=== PATIENT | male | born 1950 | race Caucasian/White ===

== ENCOUNTER → 2023-09-16 20:45 | Day surgery (SDC) | payer OTHER, SELFPAY ==
[2023-09-16] VITALS (7 sets, daily range): BP systolic 123–168; BP diastolic 77–85; BMI 30.5
--- NOTE | 2023-09-16 19:06 | ED.GENMED ---
History of Present Illness
General
Chief Complaint: Swallowing Problem
Source: patient and spouse
Exam Limitations: none
Time Seen by Provider: 09/16/23 18:56
Nursing documentation reviewed up to this point in time: agreed with
Travel History
Have you had any contact with someone who has COVID-19?: No
Do you have any symptoms of coronavirus? Fever > 100 degrees, chills, cough, shortness of breath, sore throat, loss of taste or smell, muscle aches, or headache?: No
History of Present Illness
History of Present Illness:
73 yo male with hx GERD, HLD presents with hamburger food impaction esophagus since 4 p.m. Had this last year and had endoscopy removal. Unable to swallow saliva. Denies CP or trouble breathing
Past History
Past History
ED Past Medical History: Hypercholesterolemia and Other (Hx food impaction once before, takes Omeprazole)
ED Past Surgical History: Appendectomy
Social History
Tobacco: Former smoker
Alcohol: Daily (Beer 1-2)
Personal:
Living: with family
Employment: Employed
Family History
Family History: Other (Noncontributory)
Review of Systems
Review of Systems
Allergies reviewed?: Yes
All Other Systems: ROS reviewed and negative except as documented in HPI and ROS
EENT: Reports other (cannot swallow saliva)
Respiratory: Denies trouble breathing
Cardiac: Denies chest pain
ABD/GI: Denies abdominal pain, nausea or vomiting
Phy Exam
Physical Exam
Physical Exam:
GENERAL: No acute distress. A&Ox3.
CONSTITUTIONAL: Afebrile.
ENMT: moist mucus membranes, Pharynx nl, spitting out his saliva, unable to swallow it
RESPIRATORY: Regular respirations, nonlabored, lungs clear.
CARDIOVASCULAR: Regular rate and rhythm, no murmurs, no rubs.
GI: Soft, nontendee
MUSCULOSKELETAL: Moves with ease. Well perfused.
SKIN: Warm, dry, pink
PSYCH: Normal mood and affect. Well kept, interactive and appropriate
NEUROLOGIC: Awake, alert and oriented. No focal neurological deficits
Course
Orders/Labs/Results
Orders:
Orders
09/16/23 19:01
Glucagon [GlucaGen] 1 mg IV NOW STA
09/16/23 20:24
Fentanyl Citrate/Pf [Sublimaze] 100 mcg .ROUTE .STK-MED ONE
Lidocaine HCl/Pf [Xylocaine-Mpf 1% Vial] 50 mg .ROUTE .STK-MED ONE
Propofol [Diprivan] 40 ml .ROUTE .STK-MED
Rocuronium Provencal [Rocuronium] 50 mg .ROUTE .STK-MED ONE
Sugammadex Sodium [Bridion] 200 mg .ROUTE .STK-MED ONE
09/16/23 20:55
Fentanyl Citrate/Pf [Sublimaze] 25 mcg IV PACU-Q5MPRN PRN
Fentanyl Citrate/Pf [Sublimaze] 50 mcg IV PACU-Q5MPRN PRN
Meperidine [Demerol] 12.5 mg IV PACU-Q5MPRN PRN
Ondansetron Injectable [Zofran] 4 mg IV PACU-ONCEPRN PRN
Prochlorperazine [Compazine] 5 mg IV PACU-ONCEPRN PRN
Notify MD As Directed
Notify physician if: for SDS patients with known or suspected sleep obstructive sleep apnea, monitor in the
PACU.
Notify MD for any apneic/desaturation episodes
O2 Therapy [RESP] Urgent
Titrate/Wean O2 to maintain O2 sat greater than (%): 92
Special Instructions: -Provide supplemental oxygen to achieve O2 sat of 92% or greater.
-After 15 min, may wean O2 and discontinue if patient is able to maintain O2 sat of 92%
or greater during recovery period.
If patient is a discharge home, without oxygen therapy, notify anestheiologist if
unable to maintain O2 SAT of 92% or greater on room air for MD clearance.
09/16/23 21:00
Normosol (Mult Electrolytes) [Normosol-R] 1,000 ml IV PER PROTOCOL
09/17/23 06:50
Dexamethasone Sod Phosphate [Decadron] 20 mg .ROUTE .STK-MED ONE
Ondansetron Injectable [Zofran] 4 mg .ROUTE .STK-MED ONE
Vital Signs
Initial and Last Documented VS:
Initial Vital Signs
Temp Pulse Resp BP Pulse Ox
99 F 67 16 143/84 97
09/16/23 18:48 09/16/23 18:48 09/16/23 18:48 09/16/23 18:48 09/16/23 18:48
Last Documented Vital Signs
Temp Pulse Resp BP Pulse Ox
98.6 F 81 19 138/77 94
09/16/23 22:05 09/16/23 22:30 09/16/23 22:30 09/16/23 22:30 09/16/23 22:30
MDM/Problems Addressed
Differential Diagnosis Includes:
esophageal food bolus, stricture, esophageal spasm
MDM/Problems Addressed:
73 yo male with hx GERD, HLD presents with hamburger food impaction esophagus since 4 p.m. Had this last year and had endoscopy removal. Unable to swallow saliva. Denies CP or trouble breathing
Glucagon administered 45 minutes ago with no improvement
Continues to spit up saliva
GI DrKomal Do consulted.
8:30 p.m. Pt to OR. Stable
*Critical Care Note
Total Time (30-74mins, 75-104mins- exclusive of procedures): Not Applicable
ED Attending Note
-
Portions of this chart may have been created with voice recognition software.� Occasional wrong word or��sound alike� substitutions may have occurred due to the inherent limitations of voice recognition software.
Discharge Plan
Departure
Patient Disposition: OR
Date of Disposition: 09/16/23
Time of Disposition: 20:42
Admit to: OR
Presentation/result/management discussed w/ accepting MD/: Dr. SPRAGUE
Condition: Fair
Discharge Problem:
Food impaction of esophagus
Interventions
Interventions:
*Risk Screen - Suicide Last Done: 09/16/23 18:48
*General Assessment Last Done: 09/16/23 18:48
*Neglect/Abuse Screening Last Done: 09/16/23 18:48
ED- Fall Risk Assessment Last Done: 09/16/23 20:44
*ED COVID-19 Vaccine History Last Done: 09/16/23 19:03
*Nursing Disposition Last Done: 09/16/23 20:44
ED-EENT Assessment Last Done: 09/16/23 19:04
TU-Yffhyx-Kadcfwqacm Assessment Last Done: 09/16/23 19:04
ED- Pulmonary Assessment Last Done: 09/16/23 19:04
ED- Neurological Assessment Last Done: 09/16/23 19:04
Discharge Date and Time
Discharge Date/Time: 09/16/23 20:45
[2023-09-16] MEDS: GlucaGen 1 MG IV (19:09)
--- NOTE | 2023-09-16 21:15 | CON.GI ---
Consultation
-
Date/Time Consultation Requested: 09/16/2023 at 745pm
Date/Time Consultation Performed: 09/16/2023 at 900p,
Requesting Provider: Nati Loyola
Performing Provider: Dr Pack
Reason for Consultation: food impaction
Medical History
Chief Complaint / HPI
Chief Complaint: food impaction
History of Present Illness:
Tomas is a 73yo M with h/o hyperlipidemia who presents with dysphagia and sense of food impaction in mid esophagus after eating hamburger slider at 4pm. He is not able to tolerate secretions. Denies abd pain, CP or nausea/vomiting. He has h/o
food impaction in Feb 2023 as well with urgent disimpaction by myself at that time. He had resolution of dysphagia with PPI use in the past.
Past Medical History
Past Medical History: Hypercholesterolemia and Other (Food impactions, Shingles, Cataract)
Past Surgical History: Appendectomy and Other (L shoulder rotator cuff, EGD x2)
Social History
Tobacco: Non-Smoker
Alcohol: Daily
Drug: None
Personal: Single
Living: With Family
Family History
Family History: Reviewed & Not Pertinent
Allergies / Home Medications
Allergy/AdvReac Type Severity Reaction Status Date / Time
No Known Allergies Allergy Verified 02/27/23 17:59
�Medication �Instructions �Recorded
Saccharomyces boulardii 250 mg 250 mg PO BID ##60 09/25/17
capsule
ciprofloxacin HCl 500 mg tablet 500 mg PO BID ##20 09/25/17
Review of Systems
-
All other systems: A 12 pt ROS was Negative except as stated above in HPI
Vital Signs
Temp Pulse Resp BP Pulse Ox
99 F 72 16 142/85 97
09/16/23 18:48 09/16/23 19:50 09/16/23 19:50 09/16/23 19:50 09/16/23 19:50
Physical Exam
Exam
GEN: No acute distress, conversant, mild distress with spitting up in bag bedside
HEENT: anicteric, extraocular movements intact, clear oropharynx without exudates
GI: soft, non-distended, not tender to palpation, normal active bowel sounds, no hepatosplenomegaly
EXT: warm, well perfused, no edema bilaterally
NEURO: AAOx3, non-focal
Results
Diagnostic Image Results:
None
Prior GI Procedures:
����02/[address] aPck Food urgent food disimpaction with rescue net
�������02/2022 Colonoscopy: Dr Jaime 8 diminutive benign (HPPs) polyps removed; diverticulosis; hemorrhoids. Repeat 5 years (Hx polyps).
Assessment / Plan
-
Tomas is a 73yo M with h/o hyperlipidemia who presents with dysphagia and sense of food impaction in mid esophagus after eating hamburger slider at 4pm. He is not able to tolerate secretions. Denies abd pain, CP or nausea/vomiting. He's had
food impaction in Feb 2023 disimpacted by myself at that time as well
Impression
- Food impaction-recurrent
- GERD
- Hyperlipidemia
Recommendations
- Urgent EGD
- NPO
- Planned intubation
- C/w PPI
Will follow with you
-
-
Thank you for consultation and allowing me to participate in the patient's care. Please call the configuration analyst GI physician during the after hours with any questions or concerns.
== END ==
LOC: EMR 18:45 → SDS 20:45
PROVIDERS: EMERGENCY PHYSICIAN Emergency Medicine; FAMILY PHYSICIAN Family Medicine
DX: T18.128A Food in esophagus causing other injury, initial encounter (principal); W44.9XXA Unspecified foreign body entering into or through a natural orifice, initial encounter
CPT/HCPCS: 43247; 43239; 88305; 96374; 99285; J1610

== ENCOUNTER → 2023-11-18 06:31 | Day surgery (SDC) | payer OTHER, SELFPAY | LOC: GI 06:31 | PROVIDERS: ATTENDING PHYSICIAN Internal Medicine Gastroenterology | DX: R12 Heartburn (principal); R13.10 Dysphagia, unspecified; K22.2 Esophageal obstruction; K29.50 Unspecified chronic gastritis without bleeding | CPT/HCPCS: 43249; 43239; 88305; 88342 ==

== ENCOUNTER 2024-05-22 06:13 | Day surgery (SDC) | payer OTHER, SELFPAY | END 2024-05-22 12:00 | disposition home or self-care (01) | LOC: GI 06:13 | PROVIDERS: ATTENDING PHYSICIAN Internal Medicine Gastroenterology; FAMILY PHYSICIAN Family Medicine | DX: K22.2 Esophageal obstruction (principal); K44.9 Diaphragmatic hernia without obstruction or gangrene; R13.10 Dysphagia, unspecified | CPT/HCPCS: 43249; 43239; 88305 ==

== ENCOUNTER → 2024-07-13 11:38 | Outpatient (REF) | payer OTHER, SELFPAY | LOC: RAD 11:38 | PROVIDERS: ATTENDING PHYSICIAN Physician Assistant; FAMILY PHYSICIAN Family Medicine | DX: S05.50XA Penetrating wound with foreign body of unspecified eyeball, initial encounter (principal) | CPT/HCPCS: 70030 ==

== ENCOUNTER → 2024-07-14 07:36 | Outpatient (REF) | payer OTHER, SELFPAY | LOC: PAVMRI 07:36 | PROVIDERS: ATTENDING PHYSICIAN Physician Assistant; FAMILY PHYSICIAN Family Medicine; REFERRING PHYSICIAN Internal Medicine Cardiovascular Disease | DX: M54.16 Radiculopathy, lumbar region (principal); M54.12 Radiculopathy, cervical region | CPT/HCPCS: 72141; 72148 ==

== ENCOUNTER → 2024-07-26 09:54 | Outpatient (REF) | payer OTHER, SELFPAY | LOC: HWRAD 09:54 | PROVIDERS: ATTENDING PHYSICIAN Family Medicine | DX: E04.1 Nontoxic single thyroid nodule (principal) | CPT/HCPCS: 76536 ==

== ENCOUNTER → 2024-09-03 11:34 | Outpatient (REF) | payer OTHER, SELFPAY | LOC: RAD 11:34 | PROVIDERS: ATTENDING PHYSICIAN Student in an Organized Health Care Education/Training Program; FAMILY PHYSICIAN Family Medicine | DX: M25.50 Pain in unspecified joint (principal); M54.2 Cervicalgia; M54.9 Dorsalgia, unspecified; R70.0 Elevated erythrocyte sedimentation rate; R79.82 Elevated C-reactive protein (CRP); Z86.69 Personal history of other diseases of the nervous system and sense organs | CPT/HCPCS: 73120 ==

== ENCOUNTER → 2024-11-15 10:05 | Outpatient (REF) | payer OTHER, SELFPAY | LOC: RCS 10:05 | PROVIDERS: ATTENDING PHYSICIAN Internal Medicine; FAMILY PHYSICIAN Family Medicine | DX: I45.10 Unspecified right bundle-branch block (principal) | CPT/HCPCS: 93306 ==

== ENCOUNTER → 2025-01-14 13:26 | Outpatient (REF) | payer OTHER, SELFPAY | LOC: RAD 13:26 | PROVIDERS: ATTENDING PHYSICIAN Family Medicine | DX: R10.32 Left lower quadrant pain (principal) | CPT/HCPCS: 74177; Q9967 ==

== ENCOUNTER → 2025-02-28 15:14 | Outpatient (REF) | payer OTHER, SELFPAY | LOC: HWRAD 15:14 | PROVIDERS: ATTENDING PHYSICIAN Family Medicine | DX: R13.19 Other dysphagia (principal); Z00.01 Encounter for general adult medical examination with abnormal findings | CPT/HCPCS: 76536 ==